=== PATIENT | male | born 1960 | race Caucasian/White ===

== ENCOUNTER 2019-02-11 13:59 | Observation (INO) | payer OTHER ==
[2019-02-11] MEDS ORDERED: ASPIRIN 81 MG PO STA (14:18)
--- NOTE | 2019-02-11 14:22 | ED ---
Chest Pain HPI - General Chief Complaint: Chest Pain Stated Complaint: Chest pain Time Seen by Provider: 02/11/19 14:11 Source: patient, RN notes reviewed Mode of arrival: ambulatory Limitations: no limitations - History of Present Illness Initial Comments: This is a 59-year-old male with history of hypertension who just recently got his medication increased from 5 mg to 10 mg who has no personal history of heart disease who does state his dad had heart disease in his 80s who started developing chest pain today while doing yardwork he states he had pressure sharp midsternal pain with associated shortness of breath and it was about 10/10 severity when it came on he states it lasted for. Time he drove here so lasted less than time of my encounter the pain had resolved. He does state he's been having intermittent episodes of pain similar to this he does radiate. He has no history of heart disease himself. He is a smoker but one pack cigarettes per day he also does admit he was out drinking last night. No other modifying factors at this time no palpitations no current dizziness or other symptoms MD Complaint: chest pain - Related Data Home Medications Medication Instructions Recorded Confirmed Lisinopril [Zestril] 10 mg PO DAILY 02/11/19 02/11/19 Multivit-Min/FA/Lycopen/Lutein 1 tab PO DAILY 02/11/19 02/11/19 [Centrum Silver Men Tablet] Allergies Allergy/AdvReac Type Severity Reaction Status Date / Time No Known Allergies Allergy Verified 02/11/19 14:47 Review of Systems ROS Statement: Those systems with pertinent positive or pertinent negative responses have been documented in the HPI. ROS Other: All systems not noted in ROS Statement are negative. EKG Findings - EKG Results: EKG: interpreted by ERMD, WNL, sinus rhythm, normal axis, normal QRS, normal ST/T, no acute changes (Normal sinus rhythm a 77 appear interval 150 to QRS duration 92 QT since QTC 364/411 no acute changes seen) Past Medical History Past Medical History: Hypertension History of Any Multi-Drug Resistant Organisms: None Reported Past Surgical History: No Surgical Hx Reported Past Psychological History: Anxiety Smoking Status: Current every day smoker Past Alcohol Use History: Occasional Past Drug Use History: None Reported General Exam - General Exam Comments Initial Comments: This is a well-developed well-nourished awake alert oriented 3 male Limitations: no limitations General appearance: alert, anxious Head exam: Present: atraumatic, normocephalic, normal inspection Eye exam: Present: normal appearance, PERRL, EOMI. Absent: scleral icterus, conjunctival injection, periorbital swelling ENT exam: Present: normal exam, mucous membranes moist Neck exam: Present: normal inspection, full ROM, other (No stridor JVD or bruits). Absent: tenderness, meningismus, lymphadenopathy Respiratory exam: Present: normal lung sounds bilaterally. Absent: respiratory distress, wheezes, rales, rhonchi, stridor Cardiovascular Exam: Present: regular rate, normal rhythm, normal heart sounds. Absent: systolic murmur, diastolic murmur, rubs, gallop, clicks GI/Abdominal exam: Present: soft, normal bowel sounds. Absent: distended, tenderness, guarding, rebound, rigid Extremities exam: Present: normal inspection, full ROM, normal capillary refill. Absent: tenderness, pedal edema, joint swelling, calf tenderness Back exam: Present: normal inspection Neurological exam: Present: alert, oriented X3, CN II-XII intact Psychiatric exam: Present: normal affect, normal mood Skin exam: Present: warm, dry, intact, normal color. 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 Patient has had no further pain since his arrival in emergency department the symptoms however he saw suspicious for unstable angina patient will be admitted he does agree with this. I did discuss the case with Dr. Goldman Disposition Clinical Impression: Unstable angina pectoris, Chest pain Disposition: ADMITTED IP TO THIS HOSP Condition: Stable Referrals: Flaquito Amaro MD [Primary Care Provider] - 1-2 days
[2019-02-11 14:50] LABS: Basophils % (A) 0 %; Eosinophils # (A) 0.1 k/uL (0-0.7); Eosinophils % (A) 1 %; HCT 42.7 % (39.0-53.0); HGB 13.9 gm/dL (13.0-17.5); Lymphocytes # (A) 2.1 k/uL (1.0-4.8); Lymphocytes % (A) 18 %; MCH 29.4 pg (25.0-35.0); MCHC 32.5 g/dL (31.0-37.0); MCV 90.3 fL (80.0-100.0); Mean Platelet Volume 6.5; Monocytes # (A) 0.7 k/uL (0-1.0); Monocytes % (A) 6 %; Neutrophils # (A) 8.4 k/uL (1.3-7.7); Neutrophils % (A) 73 %; Platelet Count 299 k/uL (150-450); RBC 4.73 m/uL (4.30-5.90); RDW 12.6 % (11.5-15.5); WBC 11.6 k/uL (3.8-10.6)
[2019-02-11 14:58] LABS: Partial Thromboplastin Time 24.2 sec (22.0-30.0); Prothrombin Time 10.6 sec (9.0-12.0)
--- NOTE | 2019-02-11 15:03 | XR ---
EXAMINATION TYPE: XR chest 2V DATE OF EXAM: 02/11/2019 COMPARISON: 06/28/2016 HISTORY: 59 year-old male chest pain TECHNIQUE: PA and lateral views FINDINGS: The cardiomediastinal silhouette, aorta, and pulmonary vasculature are within normal limits. Hyperinf lation. Trace biapical pleural parenchymal scarring. No consolidation or pleural effusion. IMPRESSION: COPD without acute cardiopulmonary process.
[2019-02-11 15:11] LABS: ALT 22 U/L (21-72); AST 23 U/L (17-59); African American GFR (CKD) >90 (>60 ml/min/1.73 sqM); Alkaline Phosphatase 88 U/L (38-126); Anion Gap 5 mmol/L; Blood Urea Nitrogen 18 mg/dL (9-20); Calcium 9.2 mg/dL (8.4-10.2); Carbon Dioxide 30 mmol/L (22-30); Chloride 103 mmol/L (98-107); Creatine Kinase 109 U/L (55-170); Glucose 99 mg/dL (74-99); Lipase 83 U/L (23-300); Magnesium 2.3 mg/dL (1.6-2.3); Sodium 138 mmol/L (137-145); Total Bilirubin 0.5 mg/dL (0.2-1.3); Total Protein 6.5 g/dL (6.3-8.2)
[2019-02-11] MEDS ORDERED: HEPARIN SODIUM,PORCINE 5,000 UNIT/ML 1 ML VIAL IV ONE (16:21)
[2019-02-11] MEDS ORDERED: NITROGLYCERIN SL TABS 0.4 MG TAB SUBLINGUAL PRN (16:21)
[2019-02-11] MEDS ORDERED: HEPARIN SOD,PORK IN 0.45% NACL 25,000 UNIT in 0.45% NACL 1 250ML.BAG IV SCH (16:30)
[2019-02-11] MEDS ORDERED: HEPARIN SODIUM,PORCINE 5,000 UNIT/ML 1 ML VIAL IV PRN (19:25)
[2019-02-11] MEDS: SODIUM CHLORIDE 0.9% 1,000 ML IV SCH (20:49)
[2019-02-12 00:35] LABS: Cholesterol 116 mg/dL (<200); HDL Cholesterol 75 mg/dL (40-60); LDL Cholesterol,Calculated 31 mg/dL (0-99); Triglycerides 52 mg/dL (<150)
[2019-02-12] MEDS ORDERED: IPRATROPIUM-ALBUTEROL 3 ML NEB INHALATION PRN (01:03)
--- NOTE | 2019-02-12 01:09 | P.HPIM ---
History of Present Illness H&P Date: 02/11/19 Chief Complaint: Chest pain Patient is a 59-year-old male with a known history of hypertension, anxiety and nicotine addiction came to ER with the complaints of chest pain, sharp pain anterior chest wall and radiating across the chest. Patient says that he has been having chest pains for the past 1 year and is occurring more frequently and increased duration recently. Today patient developed chest pain while doing yardwork. 10 x 10 in severity. Pain lasted about 35 minutes. Associated with shortness of breath and denied any radiation. No headache or dizziness or lightheadedness. No palpitations. Denied any leg swelling. No orthopnea or PND. No history of prior heart disease. Patient does smoke about 1 pack per day. Chest x-ray showed correlate for COPD EKG showed normal sinus rhythm Troponin 2 negative Review of Systems Constitutional: Patient denies any fever or chills . No generalized weakness or weight loss. Abdomen: Patient denied nausea vomiting and diarrhea and abdominal pain. Cardiovascular: Chest pain across anterior chest wall associated with short of breath no palpitations. Respiratory: patient denied any cough is from production. No shortness of breath Neurologic: Patient denied any numbness or tingling headache. Musculoskeletal: Patient denies any complaints of joint swelling or deformity. Skin: Negative Psychiatric: Negative Endocrine: No heat or cold intolerance. No recent weight gain. Genitourinary: No dysuria or hematuria. All other 14 point ROS negative except the above Past Medical History Past Medical History: Hypertension History of Any Multi-Drug Resistant Organisms: None Reported Past Surgical History: No Surgical Hx Reported Past Psychological History: Anxiety Smoking Status: Current every day smoker Past Alcohol Use History: Occasional Past Drug Use History: None Reported - Past Family History Father Family Medical History: Diabetes Mellitus Additional Family Medical History / Comment(s): pt states his father has heart problems, 4 vessle CABG Mother Family Medical History: AICD/Pacemaker Additional Family Medical History / Comment(s): pt states his mother has heart problems. Medications and Allergies Home Medications Medication Instructions Recorded Confirmed Type Lisinopril [Zestril] 10 mg PO DAILY 02/11/19 02/11/19 History Multivit-Min/FA/Lycopen/Lutein 1 tab PO DAILY 02/11/19 02/11/19 History [Centrum Silver Men Tablet] Allergies Allergy/AdvReac Type Severity Reaction Status Date / Time No Known Allergies Allergy Verified 02/11/19 14:47 Physical Exam Vitals: Vital Signs Temp Pulse Pulse Resp BP Pulse Ox 02/11/19 15:51 18 139/92 98 02/11/19 14:48 18 L 18 02/11/19 14:04 98.3 F 90 18 155/90 98 Intake and Output 02/11/19 02/11/19 02/11/19 06:59 14:59 22:59 Other: Weight 80.739 kg PHYSICAL EXAMINATION: Patient is lying in the bed comfortably, no acute distress, awake alert and tu ented.. HEENT: Normocephalic. Neck is supple. Pupils reactive. Nostrils clear. Oral cavity is moist. Ears reveal no drainage. Neck reveals no JVD, carotid bruits, or thyromegaly. CHEST EXAMINATION: Trachea is central. Symmetrical expansion. Bibasilar diminished air entry. No wheezing. Lung tuttle clear to auscultation and percussion. CARDIAC: Normal S1, S2 with no gallops. No murmurs ABDOMEN: Soft. Bowel sounds normal. No organomegaly. No abdominal bruits. Extremities: reveal no edema. No clubbing or cyanosis Neurologically awake, alert, oriented x3 with well-coordinated movements. No focal deficits noted Skin: No rash or skin lesions. Psychiatric: Coperative. Nonsuicidal Musculoskeletal: No joint swelling or deformity. Normal range of motion. Results CBC & Chem 7: 02/11/19 14:36 02/11/19 14:36 Labs: Abnormal Lab Results - Last 24 Hours (Table) 02/11/19 Range/Units 14:36 WBC 11.6 H (3.8-10.6) k/uL Neutrophils # 8.4 H (1.3-7.7) k/uL Thrombosis Risk Factor Assmnt - DVT/VTE Prophylaxis DVT/VTE Prophylaxis: Pharmacologic Prophylaxis ordered Assessment and Plan Assessment: Atypical chest pain possible unstable angina. Nicotine addiction Hypertension Anxiety Plan: Patient will be continued on telemetry monitoring. Initial EKG and troponin 2 negative. LDL 31 and HDL 75. Continue with aspirin. Continue with heparin drip. Cardiology was consulted. Patient was counseled extensively for smoking cessation. Further recommendations based on the clinical course. Time with Patient: Greater than 30
--- NOTE | 2019-02-12 07:42 | P.CRDCN ---
History of Present Illness Consult date: 02/12/19 Consult reason: chest pain History of present illness: This is a 59-year-old male with past medical history of hypertension recently had his lisinopril increased to 10 mg. Patient gives history of having intermittent chest pain for the past year sometimes when he is active and other times when he is resting. He states it comes and goes and usually takes aspirin which is taken away in the past. He also complains of increased shortness of breath with activity and increasing fatigue. He describes the pain as a tightness across his chest and at times a 10 out of 10. Patient also has history of tobacco use at one pack per day and also alcohol use of 6-8 beers per day. Patient also relates that he has been in the process of breaking up with his girlfriend over the past 3 weeks. He was doing yard work yesterday when the pain started but also on the phone with his girlfriend when the pain started. He is currently pain-free and was pain free through the night. He is not sure what his pain away. He has no chest wall tenderness. Patient states he initially went to Dr. Corbett's office and then sent to the hospital for evaluation. Troponins have been negative on 3 draws. WBC 11.6 otherwise CBC and comprehensive metabolic panel normal, troponins negative on 3 draws. EKG is a sinus rhythm without acute ST-T wave changes. Cholesterol 116, LDL 31, HDL 75, lipase 83. Chest x-ray showed COPD without acute cardiopulmonary process. Patient has been started on a heparin drip and full strength aspirin as well as continued on lisinopril 10 mg daily. Review Of Systems: Constitutional: No fever, no chills, no night sweats. No weight change. Reports fatigue. EENT: No headache. No blurred vision or double vision, no loss of vision. No loss of Hearing, no ringing in the ears, no dizziness. No nasal drainage or congestion. Lungs: Reports shortness of breath with exertion, denies cough, no sputum production. Cardiovascular: Reports chest pain, no lower extremity edema. No palpitations. No paroxysmal nocturnal dyspnea. No orthopnea. No lightheadedness or dizziness. No syncopal episodes. Abdominal: No abdominal pain. No nausea, vomiting. No diarrhea. No constipation. No bloody or tarry stools. No loss of appetite. Genitourinary: No dysuria, increased frequency, urgency. No urinary retention. Musculoskeletal: No myalgias. No muscle weakness, no gait dysfunction, no frequent falls. No back pain. No neck pain. Integumentary: No wounds, no lesions. No rash or pruritus. Neurologic: No aphasia. No facial droop. No change in mentation. No head injury. Psychiatric: No depression. Reports anxiety. No mood swings. Endocrine: No abnormal blood sugars. No weight change. Past Medical History Past Medical History: Hypertension Additional Past Medical History / Comment(s): aspestis exposure History of Any Multi-Drug Resistant Organisms: None Reported Past Surgical History: No Surgical Hx Reported Additional Past Surgical History / Comment(s): urethral stricture repair, suprpubic tube in bladder, bladder infection Past Anesthesia/Blood Transfusion Reactions: Previous Problems w/ Anesthesia Additional Past Anesthesia/Blood Transfusion Reaction / Comment(s): low heart rate in 20s with anesthesia. Past Psychological History: Anxiety Smoking Status: Current every day smoker Past Alcohol Use History: Occasional Additional Past Alcohol Use History / Comment(s): Patient is a smoker one pack per day. He drinks 6-8 beers per day. Past Drug Use History: None Reported - Past Family History Father Family Medical History: Diabetes Mellitus Additional Family Medical History / Comment(s): pt states his father has heart problems, 4 vessle CABG at age 68 Mother Family Medical History: AICD/Pacemaker Additional Family Medical History / Comment(s): pt states his mother has heart problems. Medications and Allergies Home Medications Medication Instructions Recorded Confirmed Type Lisinopril [Zestril] 10 mg PO DAILY 02/11/19 02/11/19 History Multivit-Min/FA/Lycopen/Lutein 1 tab PO DAILY 02/11/19 02/11/19 History [Centrum Silver Men Tablet] Allergies Allergy/AdvReac Type Severity Reaction Status Date / Time No Known Allergies Allergy Verified 02/11/19 14:47 Physical Exam Vitals: Vital Signs Temp Pulse Pulse Pulse Pulse Resp BP 02/12/19 04:00 97.8 F 63 15 02/11/19 23:35 97.9 F 79 14 02/11/19 19:21 97.6 F 74 15 02/11/19 17:25 98.3 F 90 18 139/92 02/11/19 17:18 97.8 F 75 16 02/11/19 15:51 18 139/92 02/11/19 14:48 18 L 18 02/11/19 14:04 98.3 F 90 18 155/90 BP Pulse Ox 02/12/19 04:00 122/74 98 02/11/19 23:35 115/67 98 02/11/19 19:21 125/79 96 02/11/19 17:25 98 02/11/19 17:18 122/70 96 02/11/19 15:51 98 02/11/19 14:48 02/11/19 14:04 98 Intake and Output 02/11/19 02/12/19 02/12/19 22:59 06:59 14:59 Intake Total 200 64.593 Balance 200 64.593 Intake: Amount of Fluid Infused ( 200 ml) Intake, IV Titration 64.593 Amount Heparin Sod,Pork in 0.45% 64.593 NaCl 25,000 unit In 0.45 % NaCl 1 250ml.bag @ 12 UNITS/KG/HR 9.689 mls/hr IV .Q24H [facility] Rx#: [id number] Other: Voiding Method Toilet Toilet # Voids 2 Gen: This is a 59-year-old male. He is resting in bed and appears to be comfortable and in no acute distress. HEENT: Head is atraumatic, normocephalic. Pupils equal, round. Sclerae is anicteric. NECK: Supple. No JVD. No lymphadenopathy. No thyromegaly. LUNGS: Coarse breath sounds throughout. No intercostal retractions. HEART: Regular rate and rhythm. No murmur. ABDOMEN: Soft. Bowel sounds are present. No masses. No tenderness. EXTREMITIES: No pedal edema. No calf tenderness. Dorsalis pedis +2 bilaterally. NEUROLOGICAL: Patient is awake, alert and oriented x3. Cranial nerves 2 through 12 are grossly intact. Results 02/11/19 14:36 02/11/19 14:36 Cardiac Enzymes 02/11/19 02/11/19 02/11/19 Range/Units 14:36 14:36 22:52 AST 23 (17-59) U/L Troponin I <0.012 <0.012 (0.000-0.034) ng/mL 02/12/19 Range/Units 02:25 AST (17-59) U/L Troponin I <0.012 (0.000-0.034) ng/mL Coagulation 02/11/19 02/11/19 02/12/19 Range/Units 14:36 22:52 05:40 PT 10.6 (9.0-12.0) sec APTT 24.2 41.0 H 51.0 H (22.0-30.0) sec Lipids 02/11/19 Range/Units 14:36 Triglycerides 52 (<150) mg/dL Cholesterol 116 (<200) mg/dL HDL Cholesterol 75 H (40-60) mg/dL CBC 02/11/19 Range/Units 14:36 WBC 11.6 H (3.8-10.6) k/uL RBC 4.73 (4.30-5.90) m/uL Hgb 13.9 (13.0-17.5) gm/dL Hct 42.7 (39.0-53.0) % Plt Count 299 (150-450) k/uL Comprehensive Metabolic Panel 02/11/19 Range/Units 14:36 Sodium 138 (137-145) mmol/L Potassium 5.0 (3.5-5.1) mmol/L Chloride 103 (98-107) mmol/L Carbon Dioxide 30 (22-30) mmol/L BUN 18 (9-20) mg/dL Creatinine 0.71 (0.66-1.25) mg/dL Glucose 99 (74-99) mg/dL Calcium 9.2 (8.4-10.2) mg/dL AST 23 (17-59) U/L ALT 22 (21-72) U/L Alkaline Phosphatase 88 (38-126) U/L Total Protein 6.5 (6.3-8.2) g/dL Albumin 4.0 (3.5-5.0) g/dL Current Medications Generic Name Dose Route Start Last Admin Trade Name Freq PRN Reason Stop Dose Admin Albuterol/Ipratropium 3 ml 02/12/19 01:03 Duoneb 0.5 Mg-3 Mg/3 Ml Soln INHALATION RT-QID PRN Shortness Of Breath Or Wheezing Aspirin 325 mg 02/12/19 09:00 Aspirin PO DAILY [facility] Famotidine 20 mg 02/12/19 09:00 Pepcid PO BID [facility] Heparin Sodium (Porcine) 0 unit 02/11/19 19:25 02/11/19 23:44 Heparin IV 2,000 unit PER PROTOCOL PRN Administration Low PTT Protocol Heparin Sodium/Sodium Chloride 250 mls @ 9.689 mls/hr 02/11/19 16:30 02/11/19 23:40 25,000 unit/ Sodium Chloride IV 14 units/kg/hr .Q24H [facility] 11.303 mls/hr Titration Protocol 12 UNITS/KG/HR Sodium Chloride 1,000 mls @ 20 mls/hr 02/11/19 16:30 02/11/19 20:49 Saline 0.9% IV Not Given .Q24H [facility] Lisinopril 10 mg 02/12/19 09:00 Zestril PO DAILY [facility] Multivitamins 1 each 02/12/19 09:00 Theragran PO DAILY [facility] Nitroglycerin 0.4 mg 02/11/19 16:21 Nitrostat SUBLINGUAL Q5M PRN Chest Pain Intake and Output 02/11/19 02/12/19 02/12/19 22:59 06:59 14:59 Intake Total 200 64.593 Balance 200 64.593 Intake: Amount of Fluid Infused ( 200 ml) Intake, IV Titration 64.593 Amount Heparin Sod,Pork in 0.45% 64.593 NaCl 25,000 unit In 0.45 % NaCl 1 250ml.bag @ 12 UNITS/KG/HR 9.689 mls/hr IV .Q24H [facility] Rx#: [id number] Other: Voiding Method Toilet Toilet # Voids 2 02/11/19 14:36 02/11/19 14:36 Assessment and Plan Plan: 1. Chest pain with increasing episodes along with fatigue and shortness of breath with activity and stress. Acute coronary syndrome ruled out. Troponins of been negative. No acute EKG changes. Patient is currently on a heparin drip and aspirin 325 mg changed to 81 mg daily. Obtain 2-D echocardiogram and Doppler study to assess cardiac structures and function. A stress echocardiogram will be scheduled for Wednesday. 2. Hypertension. Continue lisinopril 10 mg daily. 3. History of COPD, stable. 4. Tobacco use and dependence. Smoking cessation. 5. Alcohol abuse. Recommend alcohol cessation. Nurse practitioner note has been reviewed, I agree with documented findings and plan of care. Patient was seen and examined.
[2019-02-12] MEDS ORDERED: ASPIRIN 325 MG TAB PO SCH (09:00)
[2019-02-12] MEDS: ASPIRIN 81 MG PO SCH (09:45)
[2019-02-12] MEDS: MULTIVITAMINS, THERA 1 EACH TAB PO SCH (09:45)
[2019-02-12] MEDS: FAMOTIDINE 20 MG TAB PO SCH ×2 (09:45→20:21)
[2019-02-12] MEDS: LISINOPRIL 10 MG TAB PO SCH (09:45)
[2019-02-12] MEDS: SODIUM CHLORIDE 0.9% 1,000 ML IV SCH (19:42)
[2019-02-13 07:16] VITALS: RESP 16
--- NOTE | 2019-02-13 09:25 | P.PN ---
Subjective This is a pleasant 59-year-old male past medical history significant for hypertension and chronic nicotine dependence. He initially presented to the emergency department with symptoms of chest discomfort, shortness of breath and increasing fatigue. He is scheduled to undergo a stress echocardiogram this morning. She is seen and examined resting comfortably in bed in no acute distress. He denies any further symptoms of chest discomfort. He states he has been up and walking around with no symptoms. Blood pressure 132/85 heart rate 64 afebrile maintaining oxygen saturation on room air. GENERAL: Well-appearing, well-nourished and in no acute distress. NECK: Supple without JVD or thyromegaly. LUNGS: Breath sounds clear to auscultation bilaterally. Respiration equal and unlabored. No wheezes, rales or rhonchi. HEART: Regular rate and rhythm without murmurs, rubs or gallops. S1 and S2 heard. EXTREMITIES: Normal range of motion, no edema. No clubbing or cyanosis. Peripheral pulses intact. ASSESSMENT Chest pain, atypical for angina. An acute coronary event has been ruled out. Hypertension COPD Chronic nicotine dependence Alcohol abuse PLAN Proceed with stress test and echocardiogram as previously ordered. If stress test is normal he is stable for discharge from a cardiac perspective. Smoking cessation highly recommended and discussed with the patient. Follow up upon discharge with Dr. Sandhu. Nurse Practitioner note has been reviewed, I agree with a documented findings and plan of care. Patient was seen and examined. Objective - Vital Signs Vital signs: Vital Signs Temp 97.6 F 02/13/19 07:15 Pulse 64 02/13/19 07:15 Resp 16 02/13/19 07:15 BP 132/85 02/13/19 07:15 Pulse Ox 96 02/13/19 07:15 Intake & Output 02/12/19 02/13/19 02/13/19 18:59 06:59 18:59 Intake Total 480 Balance 480 Intake: Oral 480 Other: Voiding Method Toilet Toilet # Voids 1 1 - Labs CBC & Chem 7: 02/11/19 14:36 02/11/19 14:36
[2019-02-13] MEDS: LISINOPRIL 10 MG TAB PO SCH (10:23)
[2019-02-13] MEDS: MULTIVITAMINS, THERA 1 EACH TAB PO SCH (10:23)
[2019-02-13] MEDS: ASPIRIN 81 MG PO SCH (10:23)
[2019-02-13] MEDS: FAMOTIDINE 20 MG TAB PO SCH (10:23)
--- NOTE | 2019-02-13 11:43 | ECHOS ---
STRESS ECHOCARDIOGRAM DATE OF SERVICE: 02/13/2019 INDICATIONS: Chest pain. MEDICATIONS: BASELINE HEART RATE: 68 BASELINE BLOOD PRESSURE: 122/61 MAXIMUM HEART RATE: 154 MAXIMUM BLOOD PRESSURE: 211/47 85% MPHR: 138 100% MPHR: 162 METS: 11.1 MAXIMUM STAGE REACHED: IV TOTAL EXERCISE TIME: 9 minutes 30 seconds CLINICAL INFORMATION: Baseline rhythm is sinus mechanism. Rate is 68. Normal axis and intervals, rare PVCs. Baseline blood pressure 122/61 mmHg. Patient exercised on Urban protocol for 9 minutes 30 seconds reaching a peak rate 154 beats per minute which is equal to 95% maximum predicted heart rate. Peak blood pressure 211/47 mmHg. Test was terminated secondary to fatigue. There was no chest pain. Electrocardiograph monitoring revealed no evidence of diagnostic ischemic ST deviation. Baseline echocardiogram revealed normal wall motion. At peak exercise, there was normal wall motion augmentation with no hypokinesis or dyskinesis. CONCLUSION: 1. Average exercise tolerance with normal electrocardiographic response to exercise and rare PVCs. 2. Normal stress echocardiogram with no evidence of stress induced ischemia. MMODL / IJN: [id number] /
--- NOTE | 2019-02-13 11:47 | ECHOF ---
Referral Reason:Chest pain and cardiomyopathy MEASUREMENTS -------- HEIGHT: 180.3 cm WEIGHT: 80.7 kg BP: 123/75 IVSd: 0.9 cm (0.6 - 1.1) LVIDd: 4.4 cm (3.9 - 5.3) LVPWd: 1.1 cm (0.6 - 1.1) IVSs: 1.7 cm LVIDs: 2.1 cm LVPWs: 1.5 cm LAESV Index (A-L): 25.97 ml/m Ao Diam: 3.3 cm (2.0 - 3.7) AV Cusp: 2.0 cm (1.5 - 2.6) LA Diam: 2.3 cm (2.7 - 3.8) MV EXCURSION: 18.395 mm (> 18.000) MV EF SLOPE: 164 mm/s (70 - 150) EPSS: 0.5 cm MV E Rosalio: 0.77 m/s MV DecT: 226 ms MV A Rosalio: 0.79 m/s MV E/A Ratio: 0.97 RAP: 5.00 mmHg RVSP: 24.33 mmHg FINDINGS -------- Sinus rhythm. This was a technically adequate study. The left ventricular size is normal. There is mild concentric left ventricular hypertrophy. Overa ll left ventricular systolic function is normal with, an EF between 55 - 60 %. The right ventricle is normal in size. Normal LA size by volume 22+/-6 ml/m2. The right atrial size is normal. Interatrial and interventricular septum intact. Aortic valve is trileaflet and is mildly thickened. The mitral valve leaflets are mildly thickened. There is trace mitral regurgitation. Mild tricuspid regurgitation present. There is no evidence of pulmonary hypertension. The right v entricular systolic pressure, as measured by Doppler, is 24.33mmHg. There is no pulmonic regurgitation present. The aortic root size is normal. Normal inferior vena cava with normal inspiratory collapse consistent with estimated right atrial pre ssure of 5 mmHg. There is no pericardial effusion. CONCLUSIONS -------- 1. Sinus rhythm. 2. This was a technically adequate study. 3. The left ventricular size is normal. 4. There is mild concentric left ventricular hypertrophy. 5. Overall left ventricular systolic function is normal with, an EF between 55 - 60 %. 6. Normal LA size by volume 22+/-6 ml/m2. 7. Interatrial and interventricular septum intact. 8. Aortic valve is trileaflet and is mildly thickened. 9. The mitral valve leaflets are mildly thickened. 10. There is trace mitral regurgitation. 11. Mild tricuspid regurgitation present. 12. There is no evidence of pulmonary hypertension. 13. There is no pulmonic regurgitation present. 14. The aortic root size is normal. 15. Normal inferior vena cava with normal inspiratory collapse consistent with estimated right atrial pressure of 5 mmHg. 16. There is no pericardial effusion. [employer] OPERATOR: Patricia Talavera RDCS
[2019-02-13 12:12] VITALS: BP 139/84; PULSE 69; TEMP 98
== END 2019-02-13 12:36 | disposition home or self-care (01) ==
LOC: EC 13:59 → 1SOBS 16:21
PROVIDERS: ADMIT Internal Medicine; ATTEND Internal Medicine
DX: R07.89 Other chest pain (principal); R06.02 Shortness of breath; R53.83 Other fatigue; I10 Essential (primary) hypertension; F17.210 Nicotine dependence, cigarettes, uncomplicated; J44.9 Chronic obstructive pulmonary disease, unspecified; F10.10 Alcohol abuse, uncomplicated; F41.9 Anxiety disorder, unspecified; Z79.899 Other long term (current) drug therapy; Z83.3 Family history of diabetes mellitus; Z82.49 Family history of ischemic heart disease and other diseases of the circulatory system; Z77.090 Contact with and (suspected) exposure to asbestos
CPT/HCPCS: 36415; 71046; 80053; 80061; 82550; 83690; 83735; 83880; 84484; 85025; 85610; 85730; 93306; 93351; 96365; 96366; 96376; 99285

== ENCOUNTER → 2020-10-10 | Outpatient (CLI) | payer OTHER ==
--- NOTE | 2020-10-10 15:06 | XR ---
EXAMINATION TYPE: XR chest 2V DATE OF EXAM: 10/10/2020 COMPARISON: 02/11/2019 INDICATION: Hemoptysis TECHNIQUE: Frontal and lateral views of the chest are obtained. FINDINGS: The heart size is normal. The pulmonary vasculature is normal. The lungs are clear. There is hyperinflation flattening the diaphragms. Correlate for COPD. IMPRESSION: 1. No acute pulmonary process. 2. COPD
== END | disposition home or self-care (01) ==
LOC: RADXRMAIN 14:23
PROVIDERS: ATTEND Internal Medicine
DX: J44.9 Chronic obstructive pulmonary disease, unspecified (principal); R04.2 Hemoptysis
CPT/HCPCS: 71046

== ENCOUNTER 2021-06-07 16:36 | Emergency (ER) | payer OTHER ==
[2021-06-07 17:20] VITALS: BP 107/65; PULSE 85; RESP 18; TEMP 98.8
--- NOTE | 2021-06-07 17:23 | ED ---
Fever HPI - General Source: patient, RN notes reviewed Mode of arrival: ambulatory Limitations: no limitations <Kem Isaac - Last Filed: 06/07/21 19:18> <Marcelina Johnson - Last Filed: 06/09/21 01:02> - General Chief Complaint: Fever Stated Complaint: Fever/LightHeaded/Syncope Time Seen by Provider: 06/07/21 17:00 - History of Present Illness Initial Comments: 61-year-old male presents emergency Department chief complaint of fever or chills slight cough. Patient states that his son has cold like symptoms. P atient states that his been in bed all day because he's felt weak. Patient states he fell using a pass out. Patient denies any chest pain, patient is unremarkable headache. (Kem Isaac) - Related Data Home Medications Medication Instructions Recorded Confirmed Multivit-Min/FA/Lycopen/Lutein 1 tab PO DAILY 02/11/19 02/11/19 [Centrum Silver Men Tablet] lisinopriL [Zestril] 10 mg PO DAILY 02/11/19 02/11/19 Allergies Allergy/AdvReac Type Severity Reaction Status Date / Time No Known Allergies Allergy Verified 02/11/19 14:47 Review of Systems ROS Other: All systems not noted in ROS Statement are negative. <Kem Isaac - Last Filed: 06/07/21 19:18> ROS Other: All systems not noted in ROS Statement are negative. <Marcelina Johnson - Last Filed: 06/09/21 01:02> ROS Statement: Those systems with pertinent positive or pertinent negative responses have been documented in the HPI. Past Medical History Past Medical History: Hypertension Additional Past Medical History / Comment(s): aspestis exposure History of Any Multi-Drug Resistant Organisms: None Reported Past Surgical History: No Surgical Hx Reported Additional Past Surgical History / Comment(s): urethral stricture repair, suprpubic tube in bladder, bladder infection Past Anesthesia/Blood Transfusion Reactions: Previous Problems w/ Anesthesia Additional Past Anesthesia/Blood Transfusion Reaction / Comment(s): low heart rate in 20s with anesthesia. Past Psychological History: Anxiety Past Alcohol Use History: Occasional Past Drug Use History: None Reported - Past Family History Father Family Medical History: Diabetes Mellitus Additional Family Medical History / Comment(s): pt states his father has heart problems, 4 vessle CABG at age 68 Mother Family Medical History: AICD/Pacemaker Additional Family Medical History / Comment(s): pt states his mother has heart problems. <MarlinKem - Last Filed: 06/07/21 19:18> General Exam Limitations: no limitations <StaceyKem black - Last Filed: 06/07/21 19:18> Course Vital Signs 06/07/21 17:18 Temperature 98.8 F Pulse Rate 85 Respiratory 18 Rate Blood Pressure 107/65 O2 Sat by Pulse 95 Oximetry Medical Decision Making <MarlinKem - Last Filed: 06/07/21 19:18> <Marcelina Johnson - Last Filed: 06/09/21 01:02> - Medical Decision Making Patient's positive for COVID-19. Patient refuses monoclonal antibodies. Patien t we discharged the physician return parameters were discussed. (Kem Isaac) I was available for consultation in the emergency department. The history and physical exam were done by the midlevel provider. I was consulted for this patients care. I reviewed the case with the midlevel provider and based on their presentation of the patient, I agree with the assessment, medical decision making and plan of care as documented. Chart was dictated using [employer] dictation software. Attempts were made to correct any dictation errors however some typographical errors may persist. (Marcelina Johnson) - Lab Data Lab Results 06/07/21 Range/Units 17:21 Coronavirus (PCR) Detected A (Not Detectd) Disposition Is patient prescribed a controlled substance at d/c from ED?: No Time of Disposition: 19:19 <MarlinKem Christin - Last Filed: 06/07/21 19:18> <Marcelina Johnson - Last Filed: 06/09/21 01:02> Clinical Impression: COVID-19 Disposition: HOME SELF-CARE Condition: Stable Instructions (If sedation given, give patient instructions): Coronavirus Disease 2019 (COVID-19) Additional Instructions: Please return to the Emergency Department if symptoms worsen or any other concerns. Referrals: Flaquito Amaro MD [Primary Care Provider] - 1-2 days
== END 2021-06-07 19:28 | disposition home or self-care (01) ==
LOC: EC 16:36
DX: U07.1 COVID-19 (principal); I10 Essential (primary) hypertension
CPT/HCPCS: 87635; 99283

== ENCOUNTER → 2023-10-30 | Outpatient (CLI) | payer BC ==
[2023-10-30 13:21] LABS: Basophils # (A) 0.04 X 10*3/uL (0.00-0.10); Basophils % (A) 0.4 %; Eosinophils # (A) 0.17 X 10*3/uL (0.04-0.35); Eosinophils % (A) 1.9 %; HCT 45.2 % (39.6-50.0); Lymphocytes # (A) 2.28 X 10*3/uL (0.90-5.00); MCH 29.5 pg (27.0-32.0); MCHC 33.2 g/dL (32.0-37.0); Mean Platelet Volume 9.5 FL (9.5-12.2); Monocytes % (A) 7.7 %; NRBC Per 100 WBC 0 X 10*3/uL (0.00-0.01); Neutrophils # (A) 5.92 X 10*3/uL (1.80-7.70); Neutrophils % (A) 64.8 %; Platelet Count 280 X 10*3/uL (140-440); RBC 5.08 X 10*6/uL (4.40-5.60); RDW 12.8 % (11.5-14.5); WBC 9.13 X 10*3/uL (4.50-10.00)
[2023-10-30 13:52] LABS: BUN/Creat Ratio 12.88 Ratio (12.00-20.00); Blood Urea Nitrogen 10.3 mg/dL (9.0-27.0); Chloride 102 mmol/L (96-109); Chol/HDL Ratio 1.71 Ratio; Glucose 104 mg/dL (70-110); LDL Cholesterol,Calculated 44.5 mg/dL (0.0-131.0); Potassium 4.6 mmol/L (3.5-5.5); Sodium 139 mmol/L (135-145); VLDL Calculation 9.86 mg/dL (5.00-40.00)
[2023-10-30 13:53] LABS: ALT 22 U/L (10-49); AST 31 U/L (14-35); Albumin 4.4 g/dL (3.8-4.9); Albumin/Globulin Ratio 1.91 Ratio (1.60-3.17); Alkaline Phosphatase 85 U/L (41-126); Calcium 9.3 mg/dL (8.7-10.3); Carbon Dioxide 27.7 mmol/L (21.6-31.8); Globulin 2.3 g/dL (1.6-3.3); Total Bilirubin 0.8 mg/dL (0.3-1.2); Total Protein 6.7 g/dL (6.2-8.2)
== END | disposition home or self-care (01) ==
LOC: LABWHC1 08:10
PROVIDERS: ATTEND Family Medicine
DX: Z00.00 Encounter for general adult medical examination without abnormal findings (principal)
CPT/HCPCS: 36415; 80053; 80061; 82306; 84153; 85025